=== PATIENT | male | born 1990 | race African-American/Black ===

== ENCOUNTER 2021-07-20 15:47 | Emergency (ER) | payer SELFPAY ==
[2021-07-20 16:40] LABS: RESPIRATORY SYNCYTIAL VIR NAA NEGATIVE (NEGATIVE)
[2021-07-20 16:47] LABS: CORONAVIRUS COVID-19 NAA POSITIVE (NEGATIVE)
== END 2021-07-20 17:05 | disposition home or self-care (01) ==
LOC: DL.ED 15:47
DX: U07.1 COVID-19 (principal)
CPT/HCPCS: 0241U; 99283; 99284

== ENCOUNTER 2022-06-23 14:08 | Emergency (ER) | payer SELFPAY | END 2022-06-23 15:50 | disposition home or self-care (01) | LOC: DL.ED 14:08 | DX: K04.7 Periapical abscess without sinus (principal); J02.8 Acute pharyngitis due to other specified organisms | CPT/HCPCS: 87081; 87430; 99283 ==

== ENCOUNTER 2023-09-10 17:00 | Emergency (ER) | payer OTHER ==
[2023-09-10] MEDS: Diphtheria,Pertussis(Acell),Tetanus Vaccine 0.5 ML Syringe IM ONE (17:32)
== END 2023-09-10 17:35 ==
LOC: DL.ED 17:00
DX: S61.451A Open bite of right hand, initial encounter (principal); Z23 Encounter for immunization; W54.0XXA Bitten by dog, initial encounter
CPT/HCPCS: 90471; 90715; 99283-25